=== PATIENT | female | born 1995 | race Caucasian/White ===

== ENCOUNTER → 2017-11-20 23:01 | Observation (INO) ==
--- NOTE | 2017-11-20 21:00 | OB/GYN Progress Note ---
Date of Encounter: 11/21/17 Time of Encounter: 20:58 - Assessment and Plan (1) 36 weeks gestation of Status: Acute (2) Vaginal pain Status: Acute Cervix remains unchanged on serial exams. Discharged home with labor and when to return to triage precautions Subjective - Subjective Interval history: 36 and 6 weeks gestation presented to triage with complaints of sharp vaginal pain occurring approximately every 20 minutes. Patient states she was seen in the office yesterday rechecked and ocular she has had an occasional cramping and pain below that today but then increased in the last 2 hours to every 20 minutes. Patient states on a car she unable to walk through them. Reports good movement, denies vaginal bleeding or leaking of fluid. Uncomplicated course with Dr. Rivera. Patient does have diagnosis of Venkatesh's Antepartum ROS: movement normal, contractions, no loss of fluid, no vaginal bleeding Objective - Exam FHR: auscultation normal Abdomen: Present: normal appearance, soft, gravid Cervical dilation: 3-4/75/-2
[2017-11-20 21:15] LABS: Bilirubin,Urine Negative (Negative); Blood,Urine Negative (Negative); Clarity,Urine Cloudy (Clear); Color,Urine Yellow (Yellow); Glucose,Urine (UA) Normal (Normal); Ketones,Urine >=160 mg/dL (Negative); Leukocyte Esterase,Urine Moderate (Negative); Nitrite,Urine Negative (Negative); PH,Urine 6.5 pH Units (5.0-8.0); Protein,Urine 30 mg/dL (Neg-Trace); Specific Gravity,Urine 1.025 (1.010-1.025); Urobilinogen,Urine Normal (Normal)
[2017-11-20 21:16] LABS: Bacteria,Urine Moderate per hpf (None-Few); Hyaline Casts,Urine Few per lpf (None-Few); Squamous Epithelial Cell,Urine Many per lpf (None-Few); WBC,Urine 50-100 per hpf (0-3)
[2017-11-20 21:37] LABS: Amphetamine Screen,Urine Negative ng/mL (Cutoff=1000); Barbiturate Screen,Urine Negative ng/mL (Cutoff=200); Benzodiazepines Screen,Urine Negative ng/mL (Cutoff=200); Cannabinoid Screen,Urine Negative ng/mL (Cutoff = 50); Cocaine Screen,Urine Negative ng/mL (Cutoff= 300); Opiate Screen,Urine Negative ng/mL (Cutoff=300); Phencyclidine Screen,Urine Negative ng/mL (Cutoff=25)
== END | disposition home or self-care (01) ==
LOC: 1NENULAB
PROVIDERS: ADMIT Obstetrics & Gynecology; ATTEND Obstetrics & Gynecology

== ENCOUNTER → 2017-11-24 15:01 | Observation (INO) ==
[2017-11-24 12:11] VITALS: BP 130/79
--- NOTE | 2017-11-24 12:28 | OB/GYN Progress Note ---
Date of Encounter: 11/24/17 Time of Encounter: 12:28 - Assessment and Plan (1) 37 weeks gestation of Current Visit: Yes Status: Acute (2) Uterine contractions during Current Visit: Yes Status: Acute Patient cervix remains unchanged since last cervical exam unless triage visit with minimal change noted ambulating here. Discharge home with labor and when to return to triage precaution. Subjective - Subjective Interval history: 37+3 weeks gestation presented to triage with complaint of contractions and last night. Patient states her contractions began around midnight last night, increasing in frequency and intensity with morning patient states she is feeling contractions approximately every 15-20 minutes. Reports good movement, denies vaginal bleeding or leaking of fluid Antepartum ROS: movement normal, contractions, no loss of fluid, no vaginal bleeding Objective - Vital Signs Vital Signs: Vital Signs Temp Pulse Resp BP 11/24/17 12:10 98.4 F 101 16 130/79 Intake and Output 11/23/17 11/24/17 11/24/17 23:59 07:59 15:59 Other: Weight 64.864 kg Patient Weight 11/24/17 23:59 Weight 64.864 kg - Exam FHR: auscultation normal FHR comments: Baseline 145 Abdomen: Present: normal appearance, soft, gravid Cervical dilation: 80/-2
[2017-11-24 12:55] LABS: Amphetamine Screen,Urine Negative ng/mL (Cutoff=1000); Barbiturate Screen,Urine Negative ng/mL (Cutoff=200); Benzodiazepines Screen,Urine Negative ng/mL (Cutoff=200); Cannabinoid Screen,Urine Negative ng/mL (Cutoff = 50); Cocaine Screen,Urine Negative ng/mL (Cutoff= 300); Opiate Screen,Urine Negative ng/mL (Cutoff=300); Phencyclidine Screen,Urine Negative ng/mL (Cutoff=25)
== END | disposition home or self-care (01) ==
LOC: 1NENULAB
PROVIDERS: ADMIT Student in an Organized Health Care Education/Training Program; ATTEND Student in an Organized Health Care Education/Training Program

== ENCOUNTER → 2017-11-26 12:34 | Observation (INO) ==
[2017-11-26 10:39] LABS: Amphetamine Screen,Urine Negative ng/mL (Cutoff=1000); Barbiturate Screen,Urine Negative ng/mL (Cutoff=200); Benzodiazepines Screen,Urine Negative ng/mL (Cutoff=200); Cannabinoid Screen,Urine Negative ng/mL (Cutoff = 50); Cocaine Screen,Urine Negative ng/mL (Cutoff= 300); Opiate Screen,Urine Negative ng/mL (Cutoff=300); Phencyclidine Screen,Urine Negative ng/mL (Cutoff=25)
[2017-11-26 10:43] LABS: Bilirubin,Urine Negative (Negative); Blood,Urine Negative (Negative); Clarity,Urine Cloudy (Clear); Color,Urine Yellow (Yellow); Glucose,Urine (UA) Normal (Normal); Ketones,Urine Negative (Negative); Leukocyte Esterase,Urine Moderate (Negative); Nitrite,Urine Negative (Negative); Protein,Urine Negative (Neg-Trace); Specific Gravity,Urine 1.019 (1.010-1.025); Urobilinogen,Urine Normal (Normal)
[2017-11-26 10:46] LABS: Hyaline Casts,Urine None Seen per lpf (None-Few); RBC,Urine 0-3 per hpf (0-3); Squamous Epithelial Cell,Urine Many per lpf (None-Few)
[2017-11-26 10:57] LABS: Bacteria,Urine Few per hpf (None-Few)
--- NOTE | 2017-11-26 11:49 | OB/GYN Progress Note ---
Date of Encounter: 11/26/17 Time of Encounter: 11:46 - Assessment and Plan (1) Uterine contractions during Current Visit: Yes Status: Acute NST - reactive Serial cervical exam - no change Urinalysis - contaminate, not indicative of urinary tract infection Discussed kick counts, when to seek care, and labor precautions Follow up in the office as schedule for routine care and PRN. (2) 37 weeks gestation of Current Visit: Yes Status: Acute Subjective - Subjective Principal diagnosis: Contractions Interval history: Ms Jarquin is a 22 year old at 37 weeks 5 days that presents to labor and delivery from the office with c/o contractions that began after being checked in the office. There were also several suspicious decelerations per patient's record while in the office. She states contractions are improving. She states positive movement. She denies headache, vision changes, epigastric pain, leaking of fluid, and vaginal bleeding/discharge. Antepartum ROS: movement normal, contractions, no loss of fluid, no vaginal bleeding Objective - Exam FHR: auscultation normal, category 1 FHR comments: Baseline 145 with occasional decel to the 130's not related to contraction and lasting less than 30 seconds. Irregular contractions. Auscultation: bilateral: normal Abdomen: Present: normal appearance, soft, gravid Uterus: Present: normal. Absent: firm, tenderness Cervical dilation: 4 Cervix effacement: 80 station: -1 - Labs Labs: Abnormal lab results Urine Clarity Cloudy (Clear) A 11/26/17 10:30 Ur Leukocyte Esterase Moderate (Negative) H 11/26/17 10:30 Urine Microscopic WBC 5-15 per hpf (0-3) H 11/26/17 10:30 Ur Squamous Epith Cells Many per lpf (None-Few) H 11/26/17 10:30 Ur Culture Indicated? NO. (NO) A 11/26/17 10:30
== END | disposition home or self-care (01) ==
LOC: 1NENULAB
PROVIDERS: ADMIT Student in an Organized Health Care Education/Training Program; ATTEND Student in an Organized Health Care Education/Training Program

== ENCOUNTER 2017-12-07 06:00 | Inpatient (IN) ==
[2017-12-07] MEDS ORDERED: Famotidine 20 MG/2 ML VIAL IVP PRN (06:14)
[2017-12-07] MEDS ORDERED: Metoclopramide 10 MG/2 ML VIAL IVP PRN (06:14)
[2017-12-07] MEDS ORDERED: *HR* Nalbuphine 10 MG/ML AMPUL IVP PRN (06:14)
[2017-12-07] MEDS ORDERED: Ondansetron 4 MG/2 ML VIAL IVP PRN (06:14)
[2017-12-07] MEDS ORDERED: Naloxone 0.4 MG/ML INJ IVP PRN (06:14)
[2017-12-07] MEDS ORDERED: Ringers Solution, Lactated 1,000 ML IVC SCH (06:15)
[2017-12-07 06:30] LABS: Basophils % 0.4 %; Eosinophils % 0.5 %; Immature Granulocytes % 0.5 % (0-4); Lymphocytes # 2.6 K/mcL (0.6-4.6); Lymphocytes % 31.8 %; Mean Corpuscular HGB Conc 31.4 g/dL (31.6-35.5); Mean Platelet Volume 10.7 fL (9.4-12.4); Monocytes # 0.5 K/mcL (0.0-1.3); Monocytes % 5.9 %; Platelet Count 283 K/mcL (140-400); Red Blood Count 4.07 M/mcL (3.82-4.97); Red Cell Distribution Width 13.9 % (11.5-14.5); Segmented Neutrophils % 60.9 %
[2017-12-07] MEDS ORDERED: Oxytocin 20 units/ LR 1000 mL 20 UNIT/1,000 ML BAG IVC SCH (06:30)
[2017-12-07 06:42] LABS: Amphetamine Screen,Urine Negative ng/mL (Cutoff=1000); Barbiturate Screen,Urine Negative ng/mL (Cutoff=200); Benzodiazepines Screen,Urine Negative ng/mL (Cutoff=200); Cannabinoid Screen,Urine Negative ng/mL (Cutoff = 50); Cocaine Screen,Urine Negative ng/mL (Cutoff= 300); Opiate Screen,Urine Negative ng/mL (Cutoff=300); Phencyclidine Screen,Urine Negative ng/mL (Cutoff=25)
--- NOTE | 2017-12-07 07:36 | Anesthesia Evaluation PreOp ---
Date of Encounter: 12/07/17 Time of Encounter: 07:34 - Past History Planned Operation: trent Cardiac History: Denies any Significant Hx Pulmonary History: Denies Any Significant HX SPECK DYER History: Denies Any Significant HX Other Medical History: Thyroid (hypo) Anesthesia History: No Prior Anesthetic Complications, Past Anesthesia (tonsils , urethra dilatation) : Yes (39 weeks, ) Alcohol Use: none Drug use: none Medications and Allergies Diclegis Dr 10-10 mg Tablet 1 tab PO PRN PRN 11/20/17 [History] Levothyroxine [Synthroid] 75 mcg PO DAILY 11/26/17 [History] Multivit with Iron-Minerals [Flintstones Complete] 1 each PO DAILY 11/26/17 [ History] 3 Allergy/AdvReac Type Severity Reaction Status Date / Time No Known Allergies Allergy Verified 04/19/17 19:44 - Meds/Allergy Pre-op Review Medications Reviewed: Yes Allergies Reviewed: Yes Beta Blockers on Current Med List: No Anesthesia Results - Labs 12/07/17 06:14 Anesthesia Exam O2 Sat Height 1.68 m Weight 65.9 kg Height: 66 Weight: 65 - HEENT Pupil (Motor): Pupils equal Mallampati: II Teeth: Normal Oral Opening: Greater than 3 - SPECK DYER LOC: Oriented SPECK DYER Motor: Normal RUE, Normal LUE, Normal RLE, Normal LLE, Normal Face SPECK DYER Sensory: Normal: RUE, LUE, RLE, LLE, Face - Cardiac Rhythm: Regular Murmur: None JVD: No Carotid Bruit: No - Pulmonary Breath Sounds: bilateral Clear Respiratory Effort: Symmetrical Anesthesia Assess/Plan ASA Score: 2 Modified Bloxom Scale for Level of Consciousness: Cooperative, oriented, and tranquil Anesthetic Plan: Regional
[2017-12-07] MEDS ORDERED: EPHEDrine 50 MG/ML VIAL IVP PRN (07:40)
[2017-12-07] MEDS ORDERED: Bupivacaine-MPF 0.25% 10 ML VIAL EP ONE (07:40)
[2017-12-07] MEDS ORDERED: *HR* FentaNYL (PF) 100 MCG/2 ML VIAL EP ONE (07:40)
[2017-12-07] MEDS ORDERED: Epidural Premix (fent/bupiv) 110 ML EP SCH (07:45)
--- NOTE | 2017-12-07 08:01 | OB Labor Progress Note ---
Date of Encounter: 12/07/17 Time of Encounter: 07:59 Labor Progress Note - Subjective Subjective: Patient resting comfortable in bed - Cervix Cervix: 5/80/0 - Heart Tones Heart Tones: Category 1 - [place]: Contractions eper monitorvery 2-3 minutes per monitor - Interventions Interventions: AROM for moderate amount clear fluid, patient and fetus tolerated well - Plan Plan: Continue routine labor management GBS negative Titrate Pitocin Patient may have epidural upon request Anticipate vaginal delivery POC per consult with Dr. Roblero
[2017-12-07] MEDS ORDERED: Epidural Premix (fent/bupiv) 110 ML EP ONE (08:50)
--- NOTE | 2017-12-07 09:14 | Anesthesia Procedures ---
Date of Encounter: 12/07/17 Time of Encounter: 09:13 Procedures: Anesthesia - Epidural/Spinal Patient ID/Chart reviewed: Yes Patient examined: Yes OB Eval: Gestational age: 39 OB Eval: : 2 OB Eval: Hx Para: 1 OB Eval: Dilated at (cm): 5 OB Eval: Contractions: Non-stressed pattern Consent Obtained: Yes Supplemental Oxygen: None/Room Air Site Prep: Aseptic Technique, 0.5% Chlorhexidine/Alcohol Patient position: upright Local Anesthetic: Lidocaine 1% Amount of Local Anesthetic used: 3 Touhy Needle Gauge: 18 Touhy Needle Depth (cm): 6 Catheter Depth at Skin (cm): 12 Test Dose (1.5% Lido + Epi): Volume given (mls): 3 Test Dose Result: Negative Loading Dose: 0.25% Marcaine (mls): 6 Loading Dose: Fentanyl (mcg): 100 Loading Dose Administered: Thru Touhy Needle Infusion Med: 0.125% Bupivacaine w/ 2 mcg/ml Fentanyl Infusion Rate (mls/hr): [address]: Tegaderm Interspace Used: L3-L4 Loss of Resistance (GREG): Yes Blood: No CSF: No Paresthesia: No
--- NOTE | 2017-12-07 10:11 | OB/GYN History & Physical ---
Date of Encounter: 12/07/17 Time of Encounter: 10:03 Assessment and Plan (1) Encounter for elective induction of labor Current visit: Yes Status: Acute Active labor GBS negative Eoidural anesthesia in place with good pain control Cervical exam 10/100/+2 Anticipate History of Present Illness HPI: 22 year old at 39 weeks and 2 days gestation presents to Labor and Delivery for scheduled elective induction of labor. Good movement, no vaginal bleeding or leaking of fluid on admission. Plans to breastfeed. Labs: Blood type O Rh positive GBS negative Rubella immune Varicella non immune GC/Chlamydia negative Urine cx negative UDS negative Past Med Surg Social Fam HX - Past Medical History Medical history: other Psychiatric history: no psych history - Past Surgical History Surgical History: no surgical history - Social History Smoking Status: Never smoker Smokeless Tobacco Status: No Alcohol use: none Drug use: none - Family History Father Adopted: No Family Member Ethnicity: Non- Living Status: Still Living Hx Family Cardiac Disorders: Yes Hx Family Respiratory Disorders: No Hx Family Cancer: No Hx Family GI Disorders: No Hx Family Genitourinary Disorders: No Hx Family Endocrine Disorder: No Hx Family Musculoskeletal Disorders: No Hx Family Neuromuscular Disorders: No Hx Family Neurologic Disorders: No Hx Family HEENT Disorders: No Hx Family Autoimmune Disorders: No Hx Family Reproductive Disorders: No Hx Family Psychosocial Disorders: No Hx Family Medical Disorders: No Obstetrical History - Pregnancies : 2 Para: 1 Term: 1 : 0 Ab's: 0 Livin Medications and Allergies Diclegis Dr 10-10 mg Tablet 1 tab PO PRN PRN 11/20/17 [History] Levothyroxine [Synthroid] 75 mcg PO DAILY 11/26/17 [History] Multivit with Iron-Minerals [Flintstones Complete] 1 each PO DAILY 11/26/17 [ History] 3 Allergy/AdvReac Type Severity Reaction Status Date / Time No Known Allergies Allergy Verified 04/19/17 19:44 Exam - Constitutional Constitutional: well developed, well nourished, mild distress - Neck Neck exam: full ROM - Extremities Extremities exam: full ROM, normal inspection - Vulva Vulva: bilateral: normal - Vagina Vagina: Present: normal moisture - Cervix Dilation: 10 Effacement: 100 Station: +2 - Anus/Rectum Anus/Rectum: Present: normal perianal skin Results Result Diagrams: 12/07/17 06:14 Abnormal lab results Hgb 11.0 g/dL (11.5-15.4) L 12/07/17 06:14 Hct 35.0 % (35.3-44.9) L 12/07/17 06:14 MCH 27.0 pg (28.0-33.3) L 12/07/17 06:14 MCHC 31.4 g/dL (31.6-35.5) L 12/07/17 06:14 All other labs normal.
[2017-12-07] MEDS ORDERED: *HR* Oxytocin 10 UNIT/ML VIAL IM ONE ×2 (10:18→11:46)
--- NOTE | 2017-12-07 10:25 | OB/GYN Procedure Note ---
Delivery - Delivery Date: 12/07/17 Provider: Shelly Houston Intrapartum events: none Delivery induction: oxytocin Delivery augmentation: rupture of membranes Delivery monitor: external FHT, external uterine Anesthesia: epidural Estimated Blood Loss: 300 - (s) Infant A Delivery Date: 12/07/17 Delivery Time: 09:42 Presentation: vertex Position: OA Route of delivery: Gender: Female Viability: Viable Pounds: 9 Ounces: 0 Weight Gram: 4090 kg at 1 minute: 9 at 5 mins: 10 Shoulder Dystocia: not encountered Specimens collected: cord blood Placenta: spontaneous (Shah with trailing membranes, membranes removed with gentle traction and twisting motion) - Repair Episiotomy: none Laceration Description: Superficial (Periclitoral & superficial right lateral) - Complications Delivery complications: none Delivery comments: Patient complete and pushed to spontaneous vaginal delivery of viable female in the OA position. No nuchal cord, shoulders delivered without difficulty, no meconium encountered. Infant vigorous and crying, placed on maternal abdomen. Delayed cord clamping greater than two minutes, cord double clamped and cut with assistance from father of baby. Placenta delivered intact, Shah, with trailing membranes easily removed with gentle traction and twisting motion. Placenta appears grossly intact with all membranes present; 3 vessel cord, cord blood obtained. Right superficial labial laceration and left periclitoral laceration, both hemostatic, unrepaired after discussion with patient. EBL 300 ml, Fundus firm and 2 below the umbilicus with small amount bleeding. Mother and infant stable in recovery for two hours. Dr. Roblero notified of delivery. attended by DEVENDRA Camarena and Shelly Houston CNM. - Disposition Mom disposition: stable in LDR disposition: stable in LDR
[2017-12-07] MEDS ORDERED: Measles/Mumps/Rubella Vacc 0.5 ML VIAL SQ PRN (11:46)
[2017-12-07] MEDS ORDERED: Acetaminophen 325 MG TABLET PO PRN (11:46)
[2017-12-07] MEDS ORDERED: Sennosides 8.6 MG TABLET PO PRN (11:46)
[2017-12-07] MEDS ORDERED: Ibuprofen 600 MG TABLET PO PRN (11:46)
[2017-12-07] MEDS ORDERED: Benzocaine/Menthol 56 GM AEROSOL SPRAY TP PRN (11:46)
[2017-12-08 08:52] VITALS: BP 127/72
[2017-12-08] MEDS ORDERED: Prenatal Vit/FA 1 EACH TABLET PO SCH (09:00)
--- NOTE | 2017-12-08 10:24 | Discharge Summary ---
Date of Encounter: 12/08/17 Time of Encounter: 10:18 - Discharge Diagnosis (1) Vaginal delivery Priority: Primary Status: Acute Comments: Meeting all PP milestones, bottle feeding, desires discharge - Discharge Medications Prescriptions: Ibuprofen [Motrin] 600 mg PO Q6HR PRN #60 tablet PRN Reason: Cramping Docusate [Colace] 100 mg PO BID #60 capsule Home Medications: Levothyroxine [Synthroid] 75 mcg PO DAILY 11/26/17 [History] Multivit with Iron-Minerals [Flintstones Complete] 1 each PO DAILY 11/26/17 [ History] Acetaminophen [Tylenol] 650 mg PO Q6HR PRN tablet 12/08/17 [Rx] Benzocaine/Menthol Rowena [Dermoplast Rowena] 1 appl TP QID PRN aerosol 12/08/17 [Rx] Docusate [Colace] 100 mg PO BID #60 capsule 12/08/17 [Rx] Hydrocortisone/Pramoxine [Epifoam] 1 appl TP TID bottle 12/08/17 [Rx] Ibuprofen [Motrin] 600 mg PO Q6HR PRN #60 tablet 12/08/17 [Rx] Vit/FA 1 each PO DAILY tablet 12/08/17 [Rx] Allergies/Adverse Reactions: 3 Allergy/AdvReac Type Severity Reaction Status Date / Time No Known Allergies Allergy Verified 04/19/17 19:44 Data Procedures and tests throughout hospitalization: Laboratory Tests 12/07/17 12/07/17 06:14 06:20 WBC 8.2 RBC 4.07 Hgb 11.0 L Hct 35.0 L MCV 86.0 MCH 27.0 L MCHC 31.4 L RDW 13.9 Plt Count 283 MPV 10.7 Immature Gran % 0.5 Seg Neutrophils % 60.9 Lymphocytes % 31.8 Monocytes % 5.9 Eosinophils % 0.5 Basophils % 0.4 Neutrophils # 5.0 Lymphocytes # 2.6 Monocytes # 0.5 Eosinophils # 0.0 Basophils # 0.0 Urine Opiates Screen Negative Ur Barbiturates Screen Negative Ur Phencyclidine Scrn Negative Ur Amphetamines Screen Negative U Benzodiazepines Scrn Negative Urine Cocaine Screen Negative U Marijuana (THC) Screen Negative Date of admission: 12/07/17 06:03 Primary care physician: Addy Alarcon DO Discharging clinician: Zainab Bloom Anticipated date of discharge: 12/08/17 - Patient Status Disposition: Home, Self-Care Condition: Good Overall status at discharge: patient is back to baseline - Discharge Instructions Follow Up With: Addy Alarcon DO [Primary Care Provider] - - Diet and Activity Activity: resume usual activities as tolerated Diet: regular diet Hospital Course Reason for admission: active labor, IUP at term Delivery: Episiotomy: none Laceration: none, other Other procedures: none complications: none Discharge diagnosis: IUP at term delivered baby: female Hospital course: - Delivery Date: 12/07/17 Provider: Shelly Houston Intrapartum events: none Delivery induction: oxytocin Delivery augmentation: rupture of membranes Delivery monitor: external FHT, external uterine Anesthesia: epidural Estimated Blood Loss: 300 - Infant (s) Infant A Delivery Date: 12/07/17 Infant Delivery Time: 09:42 Presentation: vertex Position: OA Route of delivery: Gender: Female Viability: Viable Pounds: 9 Ounces: 0 Weight Gram: 4090 kg at 1 minute: 9 at 5 mins: 10 Shoulder Dystocia: not encountered Specimens collected: cord blood Placenta: spontaneous (Shah with trailing membranes, membranes removed with gentle traction and twisting motion) - Repair Episiotomy: none Laceration Description: Superficial (Periclitoral & superficial right lateral) - Complications Delivery complications: none Delivery comments: Patient complete and pushed to spontaneous vaginal delivery of viable female in the OA position. No nuchal cord, shoulders delivered without difficulty, no meconium encountered. vigorous and crying, placed on maternal abdomen. Delayed cord clamping greater than two minutes, cord double clamped and cut with assistance from father of baby. Placenta delivered intact, Shah, with trailing membranes easily removed with gentle traction and twisting motion. Placenta appears grossly intact with all membranes present; 3 vessel cord, cord blood obtained. Right superficial labial laceration and left periclitoral laceration, both hemostatic, unrepaired after discussion with patient. EBL 300 ml, Fundus firm and 2 below the umbilicus with small amount bleeding. Mother and stable in recovery for two hours. Dr. Roblero notified of delivery. attended by DEVENDRA Camarena and Shelly Yinger , CNM. - Disposition Mom disposition: stable in PP and appropriate for discharge. Time Attestation: Total time spent providing and/or coordinating discharge services: Time Spent: Less than 30 minutes Exam - Constitutional Vitals: Temp Pulse Resp BP Pulse Ox 97.4 F L 86 16 127/72 99 12/08/17 08:50 12/08/17 08:50 12/08/17 08:50 12/08/17 08:50 12/08/17 04:15 General appearance IM: A&O X 3 - Respiratory Respiratory exam: Present: CTAB - Cardiovascular Cardiovascular exam IM: Present: RRR - GI/Abdominal GI/Abdominal exam IM: soft - Uterine Tone: Firm Uterus Position: At Umbilicus - Extremities Exam Extremities exam IM: Present: normal capillary refill, normal inspection - Neurological Exam Neurological exam: normal gait, oriented X3 - Psychiatric Additional comments: Reports good mood.
== END 2017-12-08 13:10 | disposition home or self-care (01) | DRG 775 ==
LOC: 1NENULAB 06:03 → 1NENUOBS 11:45
PROVIDERS: ADMIT Advanced Practice Midwife; ATTEND Obstetrics & Gynecology